=== PATIENT | male | born 1990 | race Caucasian/White ===

== ENCOUNTER 2016-10-04 13:47 | Emergency (ER) | payer BC ==
[2016-10-04 17:01] VITALS: BP 127/73
--- NOTE | 2016-10-04 18:17 | RAD ---
INDICATION: Cough, fever, shortness of breath. Central chest pain. COMPARISON: None. TECHNIQUE: Dual energy PA and routine lateral views of the chest were obtained. REPORT: Clear lungs and pleural spaces. Negative for pneumothorax. The heart, pulmonary vasculature, and mediastinal contours are unremarkable. Unremarkable osseous structures and soft tissue contours. IMPRESSION: No evidence for pneumonia. No evidence for acute intrathoracic disease.
--- NOTE | 2016-10-05 07:38 | UC ---
Mati Perez Aidan, scribed for Shanti Templeton MD on 10/04/16 at 1745 . FLU HPI - HPI Summary HPI Summary: 25 y/o male presents to the Urgent Care with a complaint of acute, constant, moderate influenza-like symptoms and respiratory symptoms that began 3 days ago. Symptoms include a fever that has subsided, chest congestion with pain, productive cough producing yellow phlegm, back pain, nasal congestion, a RAMOS behind the ears with pressure, and feeling cold. Pain associated with his symptoms is 5/10. Cold medication did not alleviate his symptoms. Hx of frequent ear infections as a child. He does not have a nebulizwer at home. - History of Current Complaint Chief Complaint: UCRespiratory Stated Complaint: HEADACHE COUGH Time Seen by Provider: 10/04/16 17:25 Hx Obtained From: Patient Onset/Duration: Gradual Onset, Lasting Days, Still Present Severity Currently: Moderate Severity Initially: Moderate Pain Intensity: 5 Pain Scale Used: 0-10 Numeric Associated Signs & Symptoms: Positive: Fever - subsided, Cough, Nasal Congestion , Headache - behind ears. Negative: Negative - chest congestion with pain, back pain, feeling cold Related Hx: Smoking - previous smoker - Allergy/Home Medications Allergies/Adverse Reactions: Allergies Allergy/AdvReac Type Severity Reaction Status Date / Time No Known Allergies Allergy Verified 10/04/16 17:01 PMH/Surg Hx/FS Hx/Imm Hx Endocrine History Of: Denies: Diabetes, Thyroid Disease Cardiovascular History Of: Denies: Cardiac Disorders, Hypertension Respiratory History Of: Denies: COPD, Asthma GI/ History Of: Denies: Ulcer - Surgical History Surgical History: Yes Surgery Procedure, Year, and Place: tubes in ears as child - Family History Known Family History: Negative: Diabetes - Social History Occupation: Employed Full-time Lives: Alone Alcohol Use: Occasionally Substance Use Type: None Smoking Status (MU): Former Smoker Type: Cigarettes Length of Time of Smoking/Using Tobacco: 2 yr When Did the Patient Quit Smoking/Using Tobacco: 2009 - Immunization History Most Recent Influenza Vaccination: denies Review of Systems Constitutional: Fever - subsided, Chills - cold Skin: Negative Eyes: Negative ENT: Other - nasal congestion Respiratory: Cough Cardiovascular: Chest Pain - due to chest congestion Gastrointestinal: Negative Genitourinary: Negative Motor: Negative Neurovascular: Negative Musculoskeletal: Arthralgia - back pain Neurological: Headache Psychological: Negative All Other Systems Reviewed And Are Negative: Yes Physical Exam Triage Information Reviewed: Yes Appearance: Well-Nourished Vital Signs: Initial Vital Signs Temp 99.9 F 10/04/16 16:55 Pulse 109 10/04/16 16:55 Resp 16 10/04/16 16:55 BP 127/73 10/04/16 16:55 Pulse Ox 98 10/04/16 16:55 Vital Signs Reviewed: Yes Eye Exam: Normal ENT Exam: Normal ENT: Positive: Pharyngeal erythema - posterior pharynx red. Negative: TMs normal - right ear drum gómez with scarring, left ear drum intact mildly red Neck exam: Normal Neck: Positive: No Lymphadenopathy Respiratory Exam: Normal, Other - no dyspnea, no tachypnea Respiratory: Positive: Rhonchi - right, Wheezing - scattered expiratory wheezes Cardiovascular Exam: Normal Cardiovascular: Positive: RRR, Other: - good general skin color, good capillary refill Abdominal Exam: Normal Abdomen Description: Positive: Nontender, No Organomegaly, Soft Bowel Sounds: Positive: Present Musculoskeletal Exam: Normal Musculoskeletal: Positive: Strength Intact Neurological Exam: Normal, Other - non-focal, grossly intact Psychological Exam: Normal, Other - conversing easily and appropriately Skin Exam: Normal, Other - no visible or reported rash Diagnostics - Radiology chest xr Xray Interpretation: No Acute Changes - IMPRESSION: No evidence for pneumonia. No evidence for acute intrathoracic disease. Radiology Interpretation Completed By: Radiologist Re-Evaluation - Re-Evaluation First Eval Re-Evaluation Time: 18:28 Change: Unchanged Flu Course/Dx - Course Course Of Treatment: The patient tested positive for Influenza B. Instructions reprinted x 2. Reviewed Infl B precautions w/ pt, including contact precautions. Questions answered to the best of my ability. Earliest sx started almost 4 days ago, but worse since then. While pushing the time window for treatment, understandably he really would like to take the tamiflu. Especially given that he has an infant son who recently had "pneumonia." Advised to let the child's car wrecker know of INf B dx. Reviewed sick contact precautions. Reviewed risks / benefits of tamiflu. Questions answered to the best of my ability. - Differential Dx/Diagnosis Provider Diagnoses: Influenza B Discharge - Discharge Plan Condition: Stable Disposition: HOME Prescriptions: Albuterol HFA INHALER* [Ventolin HFA Inhaler*] 1 - 2 puff INH Q4H PRN #1 mdi PRN Reason: Wheezing Oseltamivir Phosphate [Tamiflu] 75 mg PO BID #10 cap Patient Education Materials: Influenza (ED) Forms: *Work Release Referrals: Willa Baez MD [Primary Care Provider] - Additional Instructions: Influenza B positive. The documentation as recorded by the Mati morrell Aidan accurately reflects the service I personally performed and the decisions made by , Shanti Templeton MD.
== END 2016-10-04 18:42 | disposition home or self-care (01) ==
LOC: UCEAST 13:47
DX: J11.1 Influenza due to unidentified influenza virus with other respiratory manifestations (principal); Z87.891 Personal history of nicotine dependence
CPT/HCPCS: 71020; 87502; 87651; 99201; G0463

== ENCOUNTER 2018-01-19 12:33 | Emergency (ER) | payer BC ==
[2018-01-19 12:49] VITALS: BP 125/80
--- NOTE | 2018-01-19 13:00 | UC ---
Bite Injury/Animal HPI - HPI Summary HPI Summary: Patient states that there is a stray cat in his neighborhood. Last evening about 6pm, he noted it to be caught in his basement. He states that he doesn't think the cat can get back out on its own. He went to pick it up to help it out and was bitten on his right hand. He states that the cat is still hiding in his crawlspace. He states the cat did not seem to be acting unusual only scared. Patient presents today because the bite feels a little sore. He denies any fever, foreign body sensation and limited range of motion. Patient states that his tetanus shot is up-to-date, at least within 10 years. pt washed site after the bite. - History of Current Complaint Chief Complaint: MIKAYLAkin Stated Complaint: CAT BITE Time Seen by Provider: 01/19/18 12:43 Pain Intensity: 2 Aggravating Factor(s): Nothing Alleviating Factor(s): Nothing Animal Available for Observation: Yes Animal Control Notified: Yes - Allergies/Home Medications Allergies/Adverse Reactions: Allergies Allergy/AdvReac Type Severity Reaction Status Date / Time No Known Allergies Allergy Verified 01/19/18 12:50 PMH/Surg Hx/FS Hx/Imm Hx Previously Healthy: Yes - Surgical History Surgical History: Yes Surgery Procedure, Year, and Place: tubes in ears as child - Family History Known Family History: Positive: None Negative: Diabetes - Social History Occupation: Employed Full-time Alcohol Use: None Substance Use Type: None Smoking Status (MU): Former Smoker Type: Cigarettes Length of Time of Smoking/Using Tobacco: 2 yr When Did the Patient Quit Smoking/Using Tobacco: 2009 - Immunization History Most Recent Influenza Vaccination: denies Most Recent Tetanus Shot: 2009? Review of Systems Constitutional: Negative Skin: Other - bite R palm Eyes: Negative ENT: Negative Respiratory: Negative Cardiovascular: Negative Gastrointestinal: Negative Genitourinary: Negative Motor: Negative Neurovascular: Negative Musculoskeletal: Negative Neurological: Negative Psychological: Negative Is Patient Immunocompromised?: No All Other Systems Reviewed And Are Negative: Yes Physical Exam Triage Information Reviewed: Yes Appearance: Well-Appearing Vital Signs: Initial Vital Signs Temp 98.7 F 01/19/18 12:43 Pulse 93 01/19/18 12:43 Resp 17 01/19/18 12:43 BP 125/80 01/19/18 12:43 Pulse Ox 97 01/19/18 12:43 Vital Signs Reviewed: Yes Eyes: Positive: Conjunctiva Clear ENT: Positive: Normal ENT inspection Neck: Positive: Supple, Nontender, No Lymphadenopathy Respiratory: Positive: Lungs clear, Normal breath sounds Cardiovascular: Positive: RRR, No Murmur Abdomen Description: Positive: Nontender, No Organomegaly, Soft Bowel Sounds: Positive: Present Musculoskeletal: Positive: ROM Intact Neurological: Positive: Alert Psychological: Positive: Age Appropriate Behavior Skin Exam: Normal, Other - Right hand exam: 2 puncture wounds noted to the palmar surface in the area between the base of the third through fifth fingers. There is minimal. Discoloration along with slight swelling but no warmth or drainage. The hand has full sensory vascular and motor function including flexion and extension against resistance which is painless. Bite Injury Course/Dx - Course Course Of Treatment: No overt infection at puncture wound site at this time; however, we will cover with Augmentin for 10 days. Health Department consulted by nursing staff and they will make an arrangement and attempt to capture the cat and then follow through on whether or not patient requires rabies vaccination after. Patient requesting referral to [facility] for follow-up thus given. - Differential Dx/Diagnosis Provider Diagnoses: cat bite R palm Discharge - Sign-Out/Discharge Documenting (check all that apply): Discharge/Admit/Transfer - Discharge Plan Condition: Stable Disposition: HOME Prescriptions: Amoxicillin/Clavulanate TAB* [Augmentin TAB 875*] 875 mg PO BID 10 Days #20 tab Patient Education Materials: Animal Bite (ED) Referrals: Wero YousifWero [Medical Doctor] - 2 Days Additional Instructions: CAT MUST BE OBSERVED. IF NOT ABLE TO OBSERVE, YOU WILL REQUIRE RABIES SHOTS. THE [facility] WILL BE CONTACTING YOU. - Billing Disposition and Condition Condition: STABLE Disposition: Home
== END 2018-01-19 13:20 | disposition home or self-care (01) ==
LOC: UCCORT 12:33
DX: S61.451A Open bite of right hand, initial encounter (principal); W55.01XA Bitten by cat, initial encounter; Y93.89 Activity, other specified; Y92.008 Other place in unspecified non-institutional (private) residence as the place of occurrence of the external cause; Z87.891 Personal history of nicotine dependence
CPT/HCPCS: 99212; G0463